=== PATIENT | male | born 1960 | race Caucasian/White ===

== ENCOUNTER 2018-04-14 08:36 | Observation (INO) | payer OTHER ==
[2018-04-12 08:41] LABS: BASOPHILS % 0.6 % (0.0-1.0); EOSINOPHILS # (AUTO) 0.1 (0.0-0.4); EOSINOPHILS % 2.6 % (0.0-6.0); HEMATOCRIT 39.5 % (38.2-49.6); HEMOGLOBIN 13.3 g/dL (14.0-18.0); MEAN CORPUSCULAR HEMOGLOBIN 30.4 pg (28-32); MEAN CORPUSCULAR HGB CONC 33.7 g/dL (31-35); MEAN CORPUSCULAR VOLUME 90.4 fL (81-99); MONOCYTES # (AUTO) 0.4 (0.2-0.8); MONOCYTES % 8.3 % (4.4-11.3); NEUTROPHILS # (AUTO) 3.5 (2.1-6.9); NEUTROPHILS % 68.1 % (38.7-80.0); PLATELET COUNT 163 x10e3/uL (140-360); RED BLOOD COUNT 4.37 x10e6/uL (4.3-5.7); RED CELL DISTRIBUTION WIDTH 12.6 % (11.7-14.4)
--- NOTE | 2018-04-12 08:50 | Diagnostic Imaging Report ---
PROCEDURE: X-RAY CHEST, TWO VIEWS COMPARISON: None. INDICATIONS: PRE OPERATIVE CHEST X-RAY FOR C-SPINE SURGERY FINDINGS: LUNGS: No consolidations or edema. PLEURA: No effusions or pneumothorax. HEART \T\ MEDIASTINUM: The heart is within normal size-limits. BONES \T\ SOFT TISSUES: Degenerative changes of the spine. [place] device overlying the left humeral head. CONCLUSION: No acute thoracic abnormality. Seth Uriarte D.O. Dictated by: Seth Uriarte D.O. on 04/12/2018 at 8:53 Electronically approved by: Seth Uriarte D.O. on 04/12/2018 at 8:53
[2018-04-12 09:07] LABS: PROTHROMBIN TIME 12.4 seconds (11.9-14.5)
[2018-04-12 09:08] LABS: PARTIAL THROMBOPLASTIN TIME 31.2 seconds (23.8-35.5)
[2018-04-12 09:10] LABS: ANION GAP 11.1 mmol/L (8-16); BLOOD UREA NITROGEN 19 mg/dL (7-26); BUN/CREATININE RATIO 18 (6-25); CALCIUM 9.3 mg/dL (8.4-10.2); CARBON DIOXIDE 29 mmol/L (22-29); CHLORIDE 105 mmol/L (98-107); CREATININE, SERUM 1.03 mg/dL (0.72-1.25); EST GLOMERULAR FILTRATION RATE > 60 ML/MIN (60-); GLUCOSE 91 mg/dL (74-118); POTASSIUM 4.1 mmol/L (3.5-5.1); SODIUM 141 mmol/L (136-145)
[~2018-04-14] VITALS: Ht 162.6 cm; Wt 73.9 kg
[~2018-04-14 08:36] MED LIST: ACETAMINOPHEN 1000 MG/100 ML 100 ML IV ONE; ALEVE220 MG PO; BACITRACIN 50,000 UNIT VIAL ONE; BUPIVACAINE 0.5%/EPI 30 ML SDV INJ ONE; CEFAZOLIN SOD 1 GM VIAL ONE; FLONASE; GELATIN SPONGE SZ 100 ONE; HYDROCODONE PO; LIDOCAINE HCL (LTA) 4 ML SOLN ONE; MULTI-VITAMIN1 EACH PO; MUSCLE RELAXER PO; OMEGA 3 PO; SINGULAIR10 MG PO; THROMBIN FOR SOLN 5,000 UNIT VIAL ONE
[2018-04-14] MEDS: LACTATED RINGER'S 1,000 ML IV SCH ×2 (10:23→20:07)
[2018-04-14] MEDS ORDERED: MORPHINE SULFATE 5 MG/ML VIAL IM PRN (10:30)
[2018-04-14] MEDS ORDERED: PROMETHAZINE HCL (IM) 25 MG/ML VIAL IM PRN (10:30)
[2018-04-14] MEDS ORDERED: ACETAMINOPHEN 325 MG TAB PO PRN (10:30)
[2018-04-14] MEDS ORDERED: HYDROMORPHONE 2MG/ML INJ IV PRN (10:30)
[2018-04-14] MEDS ORDERED: OXYCODONE/ACETAMINOPHEN 5-325 1 EACH TABLET PO PRN (10:30)
[2018-04-14] MEDS ORDERED: CARISOPRODOL 350 MG TAB PO PRN (10:30)
[2018-04-14] MEDS ORDERED: CEPACOL SORE THROAT LOZENGES PO PRN (10:30)
[2018-04-14] MEDS ORDERED: MAGNESIUM/ALUMINUM/SIMETHICONE 30 ML UDC PO PRN (10:30)
[2018-04-14] MEDS ORDERED: ONDANSETRON HCL INJ 2 MG/ML VIAL IV PRN (10:30)
[2018-04-14] MEDS ORDERED: LABETALOL HCL 20 ML ONE (10:53)
[2018-04-14] MEDS ORDERED: HYDRALAZINE HCL 20 MG/ML VIAL ONE (11:16)
[2018-04-14 12:14] VITALS: BP 123/66
--- NOTE | 2018-04-14 12:27 | Operative Report ---
DATE OF PROCEDURE: April 14, 2018 PREOPERATIVE DIAGNOSIS: C4-5 spondylosis and foraminal stenosis and disk herniation with radiculopathy, M50.121. POSTOPERATIVE DIAGNOSIS: C4-5 spondylosis and foraminal stenosis and disk herniation with radiculopathy, M50.121. PROCEDURES: 1. C4-5 anterior cervical diskectomy and microsurgical osteophyte resection and allograft fusion, 30042. 2. Preparation of [employer] cortical cancellous allograft, 48358. 3. C4-5 anterior cervical plating with Synthes Zero-Profile Natural plate, [id number]. ANESTHESIA: General. INDICATIONS: The patient is a 57-year-old man who presents with left C5 radiculopathy superimposed on chronic shoulder problems. He was found to have C4-5 spondylosis, spondylolisthesis and left-sided foraminal stenosis. He was taken to the operating room for C4-5 anterior cervical decompression and fusion. PROCEDURE: After the induction of general anesthesia, the patient was placed on the operating table in supine position. The right side of the neck was prepped and draped in sterile fashion. The fluoroscopic C-arm was positioned in cross-table lateral orientation. A transverse incision was created on the right side of the neck superimposed on the C4-5 disk space as determined by fluoroscopy. The platysma was divided in line with the incision. A subplatysmal dissection was carried out. An avascular plane of dissection was developed medial to the sternocleidomastoid muscle and was followed medial to the carotid sheath to the anterior border of the cervical spine. The deep cervical fascia was opened. The esophagus was retracted to the left. The attachments of longus coli muscles to the anterolateral aspects of the bodies of C4 and C5 were divided. The anterior longitudinal ligament was resected. [place] posts were inserted into C4 and C5. The [place] distractor was used to distract the disk space. The anterior annulus of the disk was incised with a number 11 blade, and the contents of the disks were thoroughly evacuated with angled curets and pituitary rongeurs. The posterior osteophytes were meticulously drilled with a 2 mm cutting bur on a high-speed drill until they were completely removed. The posterior annulus of the disk, herniated disk material, and the posterior longitudinal ligament were resected layer by layer until the dura was fully exposed and decompressed. The medial aspects of the uncinate processes were resected bilaterally to further expose and decompress the origins of the corresponding C5 nerve roots. After a satisfactory decompression had been achieved, the disk space was sized and found to be 8 mm in height. A piece of MTF cortical cancellous allograft measuring 8 mm in thickness was selected and prepared in saline and loaded onto a Synthes ZPN plate. The construct was inserted into the C4-5 space under distraction and fluoroscopic guidance. The distraction was released, and the distraction posts were removed. The plate was then screwed to the endplates of C4 and C5 with 2 pairs of 14 mm screws. All screws were locked. An excellent construct was obtained. The wound was copiously irrigated with Bacitracin solution. Meticulous hemostasis was secured. The retractor was removed. The platysma was closed with 3-0 Vicryl sutures, and the skin was closed with 4-0 Monocryl sutures in subcuticular fashion. Steri-Strips and a dressing were applied. The patient was awakened, extubated and taken to the postanesthesia care unit in stable condition. No intraoperative complications were encountered. Estimated blood loss was 10 mL. Job#: [id number] LAILA
[2018-04-14 12:30] VITALS: BP 123/66
[2018-04-14 12:52] VITALS: BP 123/66
[2018-04-14] MEDS: HYDROMORPHONE 1MG/1ML INJ IV PRN ×2 (12:56→21:05)
[2018-04-14] MEDS ORDERED: CEFAZOLIN SOD 1 GM/NS 50ML 50 ML IV SCH (14:00)
[2018-04-14 14:57] VITALS: BP 109/62
[2018-04-14] MEDS: CEFAZOLIN SOD 1 GM VIAL IV SCH (18:01)
[2018-04-14] MEDS ORDERED: FENTANYL CITRATE/PF 100MCG/2 ML INJ ONE (18:28)
[2018-04-14] MEDS ORDERED: MIDAZOLAM HCL 2 MG/2 ML VIAL ONE (18:28)
[2018-04-14] MEDS ORDERED: NEOSTIGMINE 5 MG/5ML SYR ONE (19:31)
[2018-04-14] MEDS ORDERED: ONDANSETRON HCL INJ 2 MG/ML VIAL ONE (19:31)
[2018-04-14] MEDS ORDERED: SEVOFLURANE INHAL SOLN 250 ML PEN BTL ONE (19:31)
[2018-04-14] MEDS ORDERED: GLYCOPYRROLATE INJ 1MG/ 5 ML SYR ONE (19:31)
[2018-04-14] MEDS ORDERED: DEXAMETHASONE SOD PHOS INJ 4 MG/ML VIAL ONE (19:31)
[2018-04-14] MEDS ORDERED: LIDOCAINE HCL 2% LOCAL INJ 5 ML SDV VIAL INJ ONE (19:31)
[2018-04-14] MEDS ORDERED: ROCURONIUM BROMIDE 10 MG/ML 5ML VIAL ONE (19:31)
[2018-04-14] MEDS ORDERED: PROPOFOL IV EMULSION 10 MG/ML 20 ML VIAL ONE (19:31)
[2018-04-14] MEDS ORDERED: LIDOCAINE HCL 2% JELLY 5 ML TUBE ONE (19:31)
[2018-04-14 20:00] VITALS: BP 118/61
[2018-04-14] MEDS ORDERED: ZOLPIDEM TARTRATE 5 MG TAB PO PRN (21:00)
[2018-04-14 21:51] VITALS: BP 118/61
[2018-04-15] VITALS: BP 105/59
[2018-04-15] MEDS: CEFAZOLIN SOD 1 GM VIAL IV SCH ×3 (00:35→09:36)
[2018-04-15] MEDS: LACTATED RINGER'S 1,000 ML IV SCH (03:03)
[2018-04-15 04:00] VITALS: BP 108/61
[2018-04-15 07:15] VITALS: BP 117/61
[2018-04-15 08:00] VITALS: BP 117/61
--- NOTE | 2018-04-15 08:51 | Diagnostic Imaging Report ---
PROCEDURE: X-RAY CERVICAL SPINE, TWO VIEWS COMPARISON:None. INDICATIONS:POST CERVICAL SPINE SURGERY FINDINGS: See conclusion. CONCLUSION: AP and lateral views of the cervical spine from the skull base to C7 show anterior cervical spine surgical fusion with an intervertebral body disc spacer at C4-C5. There is old fusion of C6-C7. The visualized vertebral bodies are well-aligned. There is mild pre-vertebral soft-tissue swelling consistent with recent surgery. Seth Uriarte D.O. Dictated by: Seth Uriarte D.O. on 04/15/2018 at 8:55 Electronically approved by: Seth Uriarte D.O. on 04/15/2018 at 8:55
[2018-04-15] MEDS ORDERED: MONTELUKAST SODIUM 10 MG TAB PO SCH (09:00)
[2018-04-15] MEDS ORDERED: NORCO 7.5-3251 EACH PO (09:27)
== END 2018-04-15 09:43 | disposition home or self-care (01) ==
LOC: OR 08:36 → PACU V 10:21 → IMCU 12:03
PROVIDERS: ADMIT Neurological Surgery; ATTEND Neurological Surgery
DX: M50.121 Cervical disc disorder at C4-C5 level with radiculopathy (principal); J45.909 Unspecified asthma, uncomplicated; M19.90 Unspecified osteoarthritis, unspecified site
CPT/HCPCS: 20931; 22551; 22845; 36415; 71046; 72040; 77003; 80048; 85025; 85610; 85730; 86850; 86900; 88304; 93005; C1713; G0378 ×2; J0360; J0690 ×2; J1100; J1170; J2001 ×2; J2250; J2405; J3490 ×2; J7120